=== PATIENT | male | born 1985 | race Caucasian/White ===

== ENCOUNTER 2025-03-24 22:20 | Emergency (ER) | payer MEDICAID, SELFPAY ==
[2025-03-24 22:26] VITALS: BP 126/90; PULSE 74; RESP 20; TEMP 36.1; O2SAT 98; BMI 29.3
--- NOTE | 2025-03-24 23:14 | ED.EYEPROB ---
HPI - Eye Problem General Chief complaint: Eye Problems Stated complaint: rt eye Time Seen by Provider: 03/24/25 22:42 Source: patient Mode of arrival: ambulatory Limitations: no limitations History of Present Illness ED Provider: HPI Narrative: Patient apparently working outside small piece of wood chip went to his right eye cleaning of pain and redness of the right eye no vision problems watering a lot Related Data Previous Rx's ?Medication ?Instructions ?Recorded tobramycin 0.3 % eye drops 1 drp ophthalmic (eye) Q4H #5 mL 03/24/25 Allergies Allergy/AdvReac Type Severity Reaction Status Date / Time No Known Allergies Allergy Verified 03/24/25 22:27 Review of Systems Review of Systems: Yes all other systems are reviewed and are negative [facility] Social History Social History Unable to assess alcohol history related to: Unknown Smoked in Last 30 Days: No Use of substances other than those prescribed or required for medical reasons: Unknown Advance Directives: No Advance Directives Information Provided: No Do you have a plan to hurt others: No Plan Physical Exam Vital Signs: Vital Signs: Last Vital Signs Temp 97.3 F 03/24/25 23:48 Pulse 65 03/24/25 23:48 Resp 16 03/24/25 23:48 BP 150/81 H 03/24/25 23:48 Pulse Ox 98 03/24/25 23:48 O2 Del Method Room Air 03/24/25 23:48 BMI result Body Mass Index 29.3 Appearance: Alert. Oriented X3. No acute distress. Eyes: No foreign body seen cornea normal fluorescein uptake negative for abrasion injected but palpabral conjunctiva anterior chamber normal fundus normal ENT: Pharynx normal Oral Mucosa moist tympanic membrane intact no erythema, Neck: Normal inspection. Neck supple. CVS: Normal heart rate and rhythm. Pulses normal. Respiratory: No respiratory distress. Equal air entry bilateral, no wheezing/rales/rhonchi Abd: soft, not tender Skin: Skin warm and dry. Normal skin color. Normal skin turgor. Neuro: Oriented X 3. Medications Administered Discontinued Medications Generic Name Dose Route Start Last Admin Trade Name Freq PRN Reason Stop Dose Admin Fluorescein Sodium 1 strip 03/24/25 22:58 03/24/25 23:32 Fluorescein Sodium Strip EYE-RIGHT 03/24/25 22:59 1 strip ONCE ONE Administration Tobramycin Sulfate 2 drop 03/24/25 22:58 03/24/25 23:33 Tobramycin Sulfate 0.3% Leora Op 5 Ml Btl EYE-RIGHT 03/24/25 22:59 2 drop ONCE ONE Administration Medical Decision Making Medical Decision Making MDM Narrative: Patient with foreign body sensation no foreign body was seen in the right eye no corneal ulceration will prescribe tobramycin eye drops Discharge Plan Discharge Clinical Impression: Foreign body sensation, right eye Patient Disposition: Home, Self-Care Instructions: Eye Foreign Body (ED) Additional Instructions: No foreign body was seen No corneal abrasion Likely have foreign body sensation from the injury Eyedrops as prescribed Prescriptions: New tobramycin 0.3 % drops 1 drp ophthalmic (eye) Q4H Qty: 5 0RF Interventions: ED Discharge Assessment Last Done: 03/24/25 23:48 Discharge Date/Time: 03/24/25 23:48 Print Language: [place]
[2025-03-24] MEDS: Fluorescein Sodium STRIP 1 STRIP EYE-RIGHT (23:32)
[2025-03-24] MEDS: Tobramycin Sulfate 0.3% Sol Op 5 ML BTL 2 DROP EYE-RIGHT (23:33)
[2025-03-24 23:47] VITALS: BP 150/81; PULSE 65; RESP 16; TEMP 36.3; O2SAT 98
[2025-03-24 23:48] VITALS: BP 150/81; PULSE 65; RESP 16; TEMP 36.3; O2SAT 98
== END 2025-03-24 23:48 | disposition home or self-care (01) ==
PROVIDERS: Emergency Provider Internal Medicine
DX: H57.11 Ocular pain, right eye (principal)
CPT/HCPCS: 99283; 99284